=== PATIENT | male | born 1980 | race Hispanic/Latino ===

== ENCOUNTER 2018-03-17 16:20 | Emergency (ER) | payer MEDICAID, OTHER ==
[2018-03-17] MEDS ORDERED: Sodium Chloride For Inhalation 0.9% 3 ML NEB ONE (16:50)
[2018-03-17] MEDS ORDERED: Albuterol Sulfate 2.5 mg/0.5 ml Neb ONE (16:50)
--- NOTE | 2018-03-17 17:19 | RAD ---
CHEST TWO VIEWS: 03/17/2018 HISTORY: Cough and congestion. COMPARISON: None. FINDINGS: The lungs are clear. The heart and mediastinal contour are unremarkable. IMPRESSION: No acute findings. POS: [facility]
== END 2018-03-17 17:21 | disposition home or self-care (01) ==
LOC: SCSER 16:20
DX: R05 Cough (principal); R09.81 Nasal congestion; E11.9 Type 2 diabetes mellitus without complications; E78.5 Hyperlipidemia, unspecified
CPT/HCPCS: 71046; J7611